=== PATIENT | female | born 1995 | race Caucasian/White ===

== ENCOUNTER 2016-07-10 20:19 | Emergency (ER) | payer OTHER ==
[~2016-07-10] VITALS: Ht 157.5 cm; Wt 63.5 kg
[~2016-07-10 20:19] MED LIST: FLUO20CA19 PO; LISD70CA PO; SERT-160 PO; TRAZ100T2 PO
[2016-07-10 22:04] VITALS: BP 127/89
[2016-07-10] MEDS ORDERED: methylPREDNISolone SOD SUCC 125 MG/2 ML VL IM ONE (22:15)
[2016-07-10] MEDS ORDERED: IPRATROPIUM BROM 0.5 MG/2.5ML INH SOL NEB ONE (22:15)
[2016-07-10] MEDS ORDERED: IBUPROFEN 600 MG TAB PO ONE (22:15)
[2016-07-10] MEDS ORDERED: ALBUTEROL SULF 2.5 MG/0.5ML(0.5%) NEB SOLN NEB ONE (22:15)
== END 2016-07-11 00:44 | disposition home or self-care (01) ==
LOC: ER 20:19
DX: J40 Bronchitis, not specified as acute or chronic (principal); F17.210 Nicotine dependence, cigarettes, uncomplicated
CPT/HCPCS: 71020; 82962; 94640; 96372; 99284; J2930